=== PATIENT | female | born 1945 | race Caucasian/White ===

== ENCOUNTER → 2023-09-18 15:55 | Outpatient (REF) | payer MEDICARE, OTHER, SELFPAY | LOC: HWWDC 15:55 | PROVIDERS: ATTENDING PHYSICIAN Obstetrics & Gynecology Gynecology; FAMILY PHYSICIAN Family Medicine | DX: Z12.31 Encounter for screening mammogram for malignant neoplasm of breast (principal) | CPT/HCPCS: 77063; 77067 ==

== ENCOUNTER → 2024-02-15 10:16 | Outpatient (REF) | payer MEDICARE, OTHER, SELFPAY ==
[2024-02-15 10:45] LABS: % Basophils 0.8 % (0-2); % Eosinophils 3.1 % (0-6); % Immature Granulocytes 0.2 % (0-0.5); % Lymphocytes 31.9 % (20.5-51.1); % Monocytes 9.1 % (1.7-9.3); % Neutrophils 54.9 % (42.2-75.2); Absolute Eosinophils 0.2 10^3/uL (0-0.7); Absolute Lymphocytes 1.5 10^3/uL (1.2-3.4); Absolute Monocytes 0.4 10^3/uL (0.1-0.6); Absolute Neutrophils 2.7 10^3/uL (1.4-6.5); Hematocrit 43.4 % (37.0-47.0); Hemoglobin 14.4 g/dL (12.0-16.0); Mean Corp Hgb Conc. 33.2 g/dL (33.0-37.0); Mean Corpuscular Hgb 31.4 pg (27.0-31.0); Mean Corpuscular Volume 94.8 fL (81.0-99.0); Mean Platelet Volume 11.2 fL (7.4-10.4); Nucleated Red Blood Cells % 0 %; Platelet Count 169 10^3/uL (130-400); Red Blood Cell Count 4.58 10^6/uL (4.20-5.40); Red Cell Dist. Width 13.2 % (11.5-14.5); White Blood Cell Count 4.8 10^3/uL (4.8-10.8)
[2024-02-15 11:17] LABS: ALT (SGPT) 20 U/L (0-35); AST (SGOT) 24 U/L (14-36); Albumin 4.4 g/dl (3.5-5.0); Alkaline Phosphatase 73 U/L (38-126); Blood Urea Nitrogen 18 mg/dl (7-17); Calcium 10.1 mg/dl (8.4-10.2); Carbon Dioxide 28 mmol/L (22-30); Chloride 104 mmol/L (98-107); Glucose 100 mg/dl (70-99); HDL Cholesterol 57 mg/dl; LDL Cholesterol, Calculated 96 mg/dl; Potassium 5.4 mmol/L (3.5-5.1); Sodium 143 mmol/L (135-145); Total Bilirubin 0.8 mg/dl (0.2-1.3); Total Cholesterol 178 mg/dl (50-199); Triglyceride 125 mg/dl (10-149); Very Low Density Lipoprotein 25 mg/dl (0-30); eGFR > 60.00
[2024-02-15 11:47] LABS: TSH Reflex To Free T4 2.11 uIU/ml (0.47-4.68)
== END ==
LOC: REG 10:16
PROVIDERS: ATTENDING PHYSICIAN Physician Assistant
DX: E03.9 Hypothyroidism, unspecified (principal); R73.09 Other abnormal glucose; K57.90 Diverticulosis of intestine, part unspecified, without perforation or abscess without bleeding; E78.00 Pure hypercholesterolemia, unspecified; D50.9 Iron deficiency anemia, unspecified
CPT/HCPCS: 36415; 80053; 80061; 83036; 84443; 85025

== ENCOUNTER → 2024-02-16 09:44 | Outpatient (REF) | payer MEDICARE, OTHER, SELFPAY ==
[2024-02-16 10:48] LABS: Potassium 5.1 mmol/L (3.5-5.1)
== END ==
LOC: REG 09:44
PROVIDERS: ATTENDING PHYSICIAN Physician Assistant
DX: E87.5 Hyperkalemia (principal)
CPT/HCPCS: 36415; 84132

== ENCOUNTER → 2025-02-19 15:01 | Outpatient (REF) | payer MEDICARE, OTHER, SELFPAY ==
[2025-02-19 16:32] LABS: Hematocrit 42.9 % (37.0-47.0); Hemoglobin 14.6 g/dL (12.0-16.0); Mean Corp Hgb Conc. 34.0 g/dL (33.0-37.0); Mean Corpuscular Volume 92.3 fL (81.0-99.0); Nucleated Red Blood Cells % 0 %; Platelet Count 163 10^3/uL (130-400); Red Cell Dist. Width 13.0 % (11.5-14.5)
[2025-02-19 16:48] LABS: ALT (SGPT) 20 U/L (0-35); AST (SGOT) 25 U/L (14-36); Albumin 4.6 g/dl (3.5-5.0); Alkaline Phosphatase 70 U/L (38-126); Blood Urea Nitrogen 18 mg/dl (7-17); Calcium 9.6 mg/dl (8.4-10.2); Carbon Dioxide 25 mmol/L (22-30); Chloride 104 mmol/L (98-107); Glucose 85 mg/dl (70-99); HDL Cholesterol 55 mg/dl; LDL Cholesterol, Calculated 93 mg/dl; Potassium 4.3 mmol/L (3.5-5.1); Sodium 137 mmol/L (135-145); Total Protein 7.4 g/dl (6.3-8.2); Very Low Density Lipoprotein 33 mg/dl (0-30); eGFR > 60.00
== END ==
LOC: REG 15:01
PROVIDERS: ATTENDING PHYSICIAN Physician Assistant
DX: E03.9 Hypothyroidism, unspecified (principal); E78.00 Pure hypercholesterolemia, unspecified; D50.9 Iron deficiency anemia, unspecified
CPT/HCPCS: 36415; 80053; 80061; 84443; 85025

== ENCOUNTER → 2025-04-14 10:23 | Outpatient (REF) | payer MEDICARE, OTHER, SELFPAY | LOC: HWWDC 10:23 | PROVIDERS: ATTENDING PHYSICIAN Obstetrics & Gynecology Gynecology; FAMILY PHYSICIAN Physician Assistant | DX: Z12.31 Encounter for screening mammogram for malignant neoplasm of breast (principal) | CPT/HCPCS: 77063; 77067 ==